=== PATIENT | female | born 1970 | race Caucasian/White ===

== ENCOUNTER 2023-08-09 08:01 | Emergency (ER) | payer BC, SELFPAY ==
--- NOTE | ~2023-08-09 | XR_ITS ---
EXAMINATION: XR FOOT, RIGHT CLINICAL INFORMATION: Great toe trauma COMPARISON: None available. TECHNIQUE: AP, lateral, and oblique views of the right foot. FINDINGS: Arrow points to the first great toe where there is soft tissue prominence about the interphalangeal joint but no fracture or dislocation. Mild degenerative change first MTP soft tissue swelling. Calcaneal spurring. Second digit proximal and middle phalangeal is obscured by overlying ring. XR/XR foot RT min 3V IMPRESSION: Great toe interphalangeal soft tissue swelling but no acute bony pathology. First MTP degenerative type changes.
[2023-08-09 08:18] VITALS: BP 125/94; PULSE 83; RESP 18; TEMP 37.2; O2SAT 98; BMI 25.1
--- NOTE | 2023-08-09 08:41 | ED_ITS ---
HPI - Extremity Injury (Lower) General Chief Complaint: Extremity Injury, Lower Stated Complaint: Toe injury Time Seen by Provider: 08/09/23 08:24 Source: patient Mode of arrival: ambulatory Limitations: no limitations History of Present Illness ED Provider: SARAH HPI Narrative: 53 yo female with no sig PMH here with R great toe injury and L posterior heel soft tissue abrasions s/p trying to break up a dog fight where her dog was killed. Police were at the scene. They could not get the other dog off. Other bystanders where also injured. Animal control notes the dog is being quarantined - low susp for rabies it was a large possible pitbull breed that attacked small dog. MD complaint: foot injury Onset (ago): day(s) (last night) Type of Injury: other (breaking up dog fight) Place: street/outdoors Severity: moderate Relieving factors: immobilization Exacerbating factors: weight bearing, movement and palpation Context: direct blow Associated symptoms: swelling and unable to bear weight Other symptoms: none Treatments prior to arrival: bandage Related Data Previous Rx's ?Medication ?Instructions ?Recorded amoxicillin 875 mg-potassium 1 tab PO BID #10 tabs 08/09/23 clavulanate 125 mg tablet cyclobenzaprine 10 mg tablet 10 mg PO TID PRN muscle spasm #20 08/09/23 tabs Allergies Allergy/AdvReac Type Severity Reaction Status Date / Time No Known Allergies Allergy Verified 08/09/23 08:20 Review of Systems Review of Systems: Constitutional : No Fever, No Chills ENT/Mouth : No Ear Pain, No Hoarseness, No sore throat Eyes: No Eye Pain, No Swelling, No Redness, No Foreign Body Cardiovascular : No Chest Pain, No SOB Respiratory : No Cough, No Dyspnea Gastrointestinal : No Nausea, No Vomiting, No Diarrhea, No abdominal Pain Genitourinary : No Dysuria, No Hematuria Musculoskeletal : positive joint pain, No Myalgias, pos Joint Swelling Skin : pos Skin lacerations, No rash Neuro : No Weakness, No Numbness, No Loss of Consciousness, No Dizziness, No Headache All other systems reviewed and are negative [facility] Past Medical History Attestation statement: The following information was validated with the patient. Source: old records reviewed Social History Social History (Updated 08/09/23 @ 08:41 by Montse Beavers DO) Patient Tobacco Use Status: Never used Tobacco Advance Directives: No Do you have a plan to hurt others: No Plan Physical Exam Vital Signs: Vital Signs: Last Vital Signs Temp 98.9 F 08/09/23 08:18 Pulse 83 08/09/23 08:18 Resp 18 08/09/23 08:18 BP 125/94 H 08/09/23 08:18 Pulse Ox 98 08/09/23 08:18 O2 Del Method Room Air 08/09/23 08:18 BMI result Body Mass Index 25.1 Appearance: Alert. Oriented X3. No acute distress. anxious, tearful Eyes: Pupils equal, round and reactive to light. ENT: Pharynx normal. Neck: Normal inspection. Neck supple. CVS: Normal heart rate and rhythm. Pulses normal. Respiratory: No respiratory distress. Breath sounds normal. Abdomen: Soft and non-tender. Skin: Skin warm and dry. Normal skin color. Normal skin turgor. Extremities: No lower extremity edema. R great toe contused and ttp no open wounds, L heel macerated superficial linear abrasions 1- 2cm, L upper heel area 1cm very superficial approximated laceration bleeding controlled no surrounding signs of infection or FB felt Neuro: Oriented X 3. No motor deficit. No sensory deficit. Course Course Course Narrative: per animal control patient is UTD on rabies Medications Administered Discontinued Medications Generic Name Dose Route Start Last Admin Trade Name Freq PRN Reason Stop Dose Admin Amoxicillin/Clavulanate Potassium 875 mg 08/09/23 08:39 08/09/23 09:29 Amoxicillin/Potassium Clav 875 Mg Tablet PO 08/09/23 08:40 875 mg ONCE ONE Administration Diphtheria/Tetanus/Acell Pertussis 0.5 ml 08/09/23 08:28 08/09/23 09:29 Diphth,Pertus(Acell),Tet Adult 0.5 Ml Syringe IM 08/09/23 08:29 0.5 ml .ONCE ONE Administration Medical Decision Making Medical Decision Making MDM Narrative: 53 yo female with R great toe injury and L posterior heel abrasions trying to break up a dog fight did not get bit suspect L heel abraded from toes - at this time will give tdap and augmentin xray of great toe. Differential Diagnosis Differential Diagnoses: The differential diagnosis associated with the presentation includes abrasions low susp for dog bite fractured toe Independent Interpretation I performed an independent interpretation of an: Plain X-Ray (no fx) Radiology Impression Discussion of test interpretation with radiology: I have reviewed the radiologist's reading. Prescription Management I considered prescription management with: Pain Medication, Antibiotic and Other Discharge Plan Discharge Clinical Impression: Abrasion of foot Qualifiers: Encounter type: initial encounter Laterality: left Qualified Code(s): S90.812A - Abrasion, left foot, initial encounter Contusion of toe, right Qualifiers: Encounter type: initial encounter Toe: great toe Damage to nail status: without damage Qualified Code(s): S90.111A - Contusion of right great toe without damage to nail, initial encounter Patient Disposition: Home, Self-Care Instructions: Contusion in Adults (ED), Abrasion (ED) Additional Instructions: okay to shower but no swimming pools, lakes, oceans, hot tubs monitor for redness, swelling, yellow drainage, fever keep clean dry and covered when out and apply bacitracin twice a day for 5 days FINDINGS: Arrow points to the first great toe where there is soft tissue prominence about the interphalangeal joint but no fracture or dislocation. Mild degenerative change first MTP soft tissue swelling. Calcaneal spurring. Second digit proximal and middle phalangeal is obscured by overlying ring. XR/XR foot RT min 3V IMPRESSION: Great toe interphalangeal soft tissue swelling but no acute bony pathology. First MTP degenerative type changes. Prescriptions: New amoxicillin-pot clavulanate 875-125 mg tablet 1 tab PO BID Qty: 10 0RF cyclobenzaprine 10 mg tablet 10 mg PO TID PRN (Reason: muscle spasm) Qty: 20 0RF Stand Alone Forms: Work/School Release Print Language: Latvian
[2023-08-09] MEDS: Diphth,Pertus(ACell),Tet Adult 0.5 ML SYRINGE IM (09:29)
[2023-08-09] MEDS: Amoxicillin/Potassium Clav 875 MG TABLET PO (09:29)
[2023-08-09 10:06] VITALS: BP 125/94; PULSE 83; RESP 18; TEMP 37.2; O2SAT 98
--- NOTE | 2023-08-09 10:07 | PC.NURSE ---
tdap given R deltoid, pt tolerated well. VIS given.
--- NOTE | 2023-08-09 11:23 | PC.NURSE ---
Bite report faxed to [place] [facility] Attn: Lcuy, per verbal request from [facility]. Faxed to .
== END 2023-08-09 10:07 | disposition home or self-care (01) ==
PROVIDERS: Emergency Provider Emergency Medicine; PCP Internal Medicine
DX: S90.812A Abrasion, left foot, initial encounter (principal); S90.111A Contusion of right great toe without damage to nail, initial encounter; S91.111A Laceration without foreign body of right great toe without damage to nail, initial encounter; M79.671 Pain in right foot; W26.9XXA Contact with unspecified sharp object(s), initial encounter; Y93.9 Activity, unspecified; Y92.9 Unspecified place or not applicable; Y99.8 Other external cause status; Z23 Encounter for immunization
CPT/HCPCS: 73630; 90471; 90715; 99283; 99284